=== PATIENT | female | born 1965 | race Caucasian/White ===

== ENCOUNTER 2017-07-08 05:58 | Day surgery (SDC) | payer OTHER ==
[2017-07-07 13:05] LABS: HEMATOCRIT 41.5 % (34.6-47.8); HEMOGLOBIN 14.3 g/dL (11.7-16.4); WHITE BLOOD COUNT 6.2 x10^3/uL (3.4-10)
[~2017-07-08] VITALS: Ht 154.9 cm; Wt 55.8 kg
[~2017-07-08 05:58] MED LIST: BUPR150T73 PO; CALC1CAP8 PO; CITA20TA5 PO; CITA20TA9 PO
[2017-07-08] MEDS ORDERED: EPINEPHRINE 1 MG/ML, 1ML ONE (07:00)
[2017-07-08] MEDS ORDERED: BUPIVACAINE/PF 0.25% ONE (07:00)
[2017-07-08] MEDS ORDERED: LACTATED RINGERS 1,000 ML IV SCH (07:03)
[2017-07-08 07:05] VITALS: BP 103/68
[2017-07-08] MEDS ORDERED: FENTANYL PF 250 MCG/5ML ONE (07:29)
[2017-07-08] MEDS ORDERED: MIDAZOLAM 1 MG/ML, 2ML ONE (07:29)
[2017-07-08] MEDS ORDERED: SUCCINYLCHOLINE 20 MG/ML, 10ML ONE (07:30)
[2017-07-08] MEDS ORDERED: KETOROLAC 30 MG/1 ML ONE (07:30)
[2017-07-08] MEDS ORDERED: CEFAZOLIN 1,000 MG ONE (07:30)
[2017-07-08] MEDS ORDERED: GLYCOPYRROLATE 0.2MG/1ML, 5ML ONE (07:30)
[2017-07-08] MEDS ORDERED: DEXAMETHASONE 4 MG/ML, 1ML ONE (07:30)
[2017-07-08] MEDS ORDERED: ONDANSETRON 2MG/ML, 2ML ONE (07:30)
[2017-07-08] MEDS ORDERED: NEOSTIGMINE 1 MG/ML, 10ML ONE (07:30)
[2017-07-08] MEDS ORDERED: PROPOFOL 10 MG/ML, 20ML ONE (07:30)
[2017-07-08] MEDS ORDERED: ROCURONIUM 10 MG/ML,10ML ONE (07:30)
[2017-07-08] MEDS ORDERED: BUPIVACAINE/PF-EPI 0.25% 1:200K IM ONE (08:14)
[2017-07-08] MEDS ORDERED: FLUORESCEIN SODIUM 500 MG/5 ML IV ONE (08:14)
[2017-07-08] MEDS ORDERED: FENTANYL PF 100 MCG/2ML IV PRN (08:30)
[2017-07-08] MEDS ORDERED: OXYcodone 5 MG/5 ML ORAL.SOL UDC PO PRN (08:30)
[2017-07-08] MEDS ORDERED: LABETALOL 5MG/ML, 20ML IV PRN (08:30)
[2017-07-08] MEDS ORDERED: hydrALAzine 20 MG/ML, 1ML IV PRN (08:30)
[2017-07-08] MEDS ORDERED: HYDROmorphone 1 MG/ML, 1ML IV PRN (08:30)
[2017-07-08] MEDS ORDERED: ONDANSETRON 2MG/ML, 2ML IVPush PRN (08:30)
[2017-07-08] MEDS ORDERED: FLUORESCEIN SODIUM 500 MG/5 ML ONE (08:40)
[2017-07-08] MEDS ORDERED: ACETAMINOPHEN 650 MG/20.3 ML UDC ONE (09:51)
[2017-07-08] MEDS ORDERED: FENTANYL PF 100 MCG/2ML ONE (09:52)
[2017-07-08] MEDS ORDERED: MEPERIDINE/PF 50 MG/ML ONE (09:52)
[2017-07-08] MEDS ORDERED: OXYcodone 5 MG/5 ML ORAL.SOL UDC ONE (09:52)
[2017-07-08] MEDS ORDERED: ACETAMINOPHEN 325 MG TABLET ONE (09:52)
[2017-07-08] MEDS: MEPERIDINE/PF 25MG/0.5ML IVPush PRN ×2 (09:55→10:25)
== END 2017-07-08 15:25 ==
LOC: OUT 05:58
DX: D25.9 Leiomyoma of uterus, unspecified (principal); N93.9 Abnormal uterine and vaginal bleeding, unspecified; Z98.890 Other specified postprocedural states
CPT/HCPCS: 36415; 58571; 81003; 84703; 85025; 88307; C1760; J0171; J0330; J0690; J1100; J1885; J2175; J2250; J2405; J2704; J2710; J3010; J3490; J7120

== ENCOUNTER → 2020-07-17 | Outpatient (CLI) | payer OTHER ==
[~2020-07-17] MED LIST changes: -CITA20TA5 PO; +CITA20TA6 PO
== END | disposition home or self-care (01) ==
LOC: CVU 07:30
PROVIDERS: ATTEND Internal Medicine Cardiovascular Disease
DX: M79.604 Pain in right leg (principal); R60.0 Localized edema
CPT/HCPCS: 93922; 93970